=== PATIENT | female | born 1960 | race Caucasian/White ===

== ENCOUNTER 2020-07-16 16:56 | Observation (INO) ==
[2020-07-16] MEDS ORDERED: methylPREDNISolone 125 MG/2 ML VIAL IVP STA (17:33)
[2020-07-16] MEDS ORDERED: Naloxone 0.4 MG/ML INJ IVP PRN (18:00)
[2020-07-16] MEDS ORDERED: *HR* HYDROcodone/Acet 5/325 mg TABLET PO PRN (18:54)
[2020-07-16] MEDS: Gabapentin 100 MG CAPSULE PO SCH (20:01)
[2020-07-16] MEDS: *HR* Heparin 5,000 UNIT/ML VIAL SQ SCH (20:19)
[2020-07-17] MEDS: Levothyroxine 25 MCG TABLET PO SCH (06:11)
[2020-07-17] MEDS: *HR* Heparin 5,000 UNIT/ML VIAL SQ SCH ×3 (06:12→21:03)
[2020-07-17] MEDS: Brexpiprazole [Rexulti] 3 MG PO SCH (07:04)
[2020-07-17] MEDS: FLUoxetine 20 MG CAPSULE PO SCH ×2 (07:07→21:03)
[2020-07-17] MEDS: Gabapentin 100 MG CAPSULE PO SCH ×3 (07:07→21:03)
[2020-07-17] MEDS: Losartan/HCTZ 50-12.5 TABLET PO SCH (07:07)
[2020-07-17] MEDS ORDERED: FLUoxetine 20 MG CAPSULE PO SCH (09:00)
[2020-07-17] MEDS: Budesonide/Formoterol 160/4.5 1 PUFF INH IH SCH ×2 (11:31→20:22)
[2020-07-17] MEDS ORDERED: Gadolinium Contrast Agent (WT Based) IV PRN (11:59)
[2020-07-17] MEDS: predniSONE 20 MG TABLET PO SCH (13:34)
[2020-07-17] MEDS: *HR* HYDROcodone/Acet 5/325 mg TABLET PO PRN (13:36)
[2020-07-17] MEDS ORDERED: predniSONE 20 MG TABLET PO SCH (17:00)
[2020-07-18] MEDS: *HR* Heparin 5,000 UNIT/ML VIAL SQ SCH ×2 (06:04→11:12)
[2020-07-18] MEDS: Levothyroxine 25 MCG TABLET PO SCH (06:04)
[2020-07-18] MEDS: Brexpiprazole [Rexulti] 3 MG PO SCH (06:57)
[2020-07-18] MEDS: FLUoxetine 20 MG CAPSULE PO SCH (07:53)
[2020-07-18] MEDS: *HR* HYDROcodone/Acet 5/325 mg TABLET PO PRN (07:53)
[2020-07-18] MEDS: predniSONE 20 MG TABLET PO SCH (07:53)
[2020-07-18] MEDS: Gabapentin 100 MG CAPSULE PO SCH (07:53)
[2020-07-18] MEDS: Losartan/HCTZ 50-12.5 TABLET PO SCH (07:54)
[2020-07-18] MEDS ORDERED: Loratadine 10 MG TABLET PO SCH (09:00)
[2020-07-18] MEDS ORDERED: Aspirin Enteric Coated 81 MG Tablet PO SCH (09:00)
[2020-07-18] MEDS: Budesonide/Formoterol 160/4.5 1 PUFF INH IH SCH (10:18)
[2020-07-18 11:42] VITALS: BP 119/74
== END 2020-07-18 11:50 | disposition home or self-care (01) ==
LOC: EMEROOARM 16:56 → 2ANU 16:56
PROVIDERS: ADMIT Internal Medicine; ATTEND Internal Medicine